=== PATIENT | female | born 1945 | race Caucasian/White ===

== ENCOUNTER → 2016-12-04 | Outpatient (CLI) | payer OTHER ==
--- NOTE | 2016-12-05 09:54 | MRI ---
EXAM DESCRIPTION: MR BRAIN WITHOUT THEN WITH IV CONTRAST; MR BRAIN ANGIOGRAPHY WITHOUT IV CONTRAST CLINICAL HISTORY: 71 y/o F, CEREBROVASCULAR DISEASE COMPARISON: None TECHNIQUE: Multi planar, multi sequence imaging of the brain was performed both prior to and after the administration of contrast. 3D [id number] MR angiogram of the brain was performed. The data was reformatted into 3D rotational images for evaluation of the vasculature. FINDINGS: MR brain: The midline structures are unremarkable. No restricted diffusion on today's study. Minimal periventricular white matter disease seen on the FLAIR sequences. Monae matter is unremarkable. No abnormal extra-axial fluid on today's study. The orbits and globes are unremarkable. Minimal ethmoid air cell and maxillary sinus mucosal thickening. There is opacification of bilateral mastoid air cells. Fluid may also be within bilateral middle ears. Post contrasted MRI demonstrates normal enhancement of the dural venous sinuses, internal cerebral veins and cortical veins. Gradient sequences reveal no evidence of old hemorrhage. MR angiogram of the brain: Bilateral vertebral arteries are codominant. They are unremarkable. Bilateral AICA-PICAs. The basilar artery and basilar tip are unremarkable on today's study. Bilateral superior cerebellar arteries are unremarkable. Bilateral posterior cerebral arteries are unremarkable. Bilateral anterior cerebral arteries are unremarkable. Bilateral MCAs are unremarkable. No aneurysm greater than 3- 4 mm on today's study. No evidence of significant vascular narrowing. IMPRESSION: Today's exam demonstrates minimal periventricular white matter disease evident by multiple T2 hyperintensities. No evidence of acute infarct or old infarct. MR angiogram is unremarkable. Incidentally noted is opacification of bilateral mastoid air cells and likely bilateral middle ears. This finding can account for patient's equilibrium issues. There is no definitive nasopharyngeal obstructing mass resulting in these findings. Electronically signed by: Juan Jose Quispe MD 12/05/2016 09:52
== END ==
LOC: MRI 13:51
PROVIDERS: ATTEND Psychiatry & Neurology Neurology
DX: I67.9 Cerebrovascular disease, unspecified (principal); Z01.812 Encounter for preprocedural laboratory examination